=== PATIENT | male | born 1960 | race Caucasian/White ===

== ENCOUNTER 2017-09-17 19:17 | Emergency (ER) | payer OTHER ==
[~2017-09-17] VITALS: Ht 188 cm; Wt 104.3 kg
[2017-09-17] MEDS ORDERED: CYCLOBENZAPRINE5 MG PO (21:35)
[2017-09-17] MEDS ORDERED: IBU800 MG PO (21:35)
[2017-09-17] MEDS ORDERED: HYDROCODON-ACE1 EAC7 PO (21:35)
[2017-09-17 21:36] VITALS: BP 167/101
== END 2017-09-17 21:30 | disposition home or self-care (01) ==
LOC: M.ERS 19:17
DX: S13.4XXA Sprain of ligaments of cervical spine, initial encounter (principal); F17.210 Nicotine dependence, cigarettes, uncomplicated; V89.2XXA Person injured in unspecified motor-vehicle accident, traffic, initial encounter; Y93.89 Activity, other specified; Y92.488 Other paved roadways as the place of occurrence of the external cause; Y99.8 Other external cause status